=== PATIENT | male | born 2000 | race Two or more races ===

== ENCOUNTER 2018-06-06 14:48 | Emergency (ER) | payer OTHER ==
[~2018-06-06] VITALS: Ht 149.9 cm; Wt 48.1 kg
== END 2018-06-06 19:34 | disposition home or self-care (01) ==
LOC: ER 14:48
DX: S60.410A Abrasion of right index finger, initial encounter (principal); W46.0XXA Contact with hypodermic needle, initial encounter; Y93.89 Activity, other specified; Y92.69 Other specified industrial and construction area as the place of occurrence of the external cause; Y99.8 Other external cause status